=== PATIENT | male | born 1940 | race Caucasian/White ===

== ENCOUNTER 2017-04-24 15:34 | Inpatient (IN) | payer MEDICARE ==
[2017-04-24] MEDS ORDERED: Nitroglycerin TAB 0.4 MG* 0.4 MG TAB SL PRN ×2 (15:41→20:24)
[2017-04-24] MEDS ORDERED: NS 0.9% 1000 ML* 1,000 ML IV ONE (15:41)
[2017-04-24] MEDS ORDERED: Nitroglycerin TAB 0.4 MG* 0.4 MG TAB ONE (15:43)
[2017-04-24] MEDS ORDERED: Metoprolol Tartrate TAB* 25 MG PO ONE (15:46)
[2017-04-24 15:49] LABS: Hematocrit 44 % (42-52); Hemoglobin 15.4 g/dl (14.0-18.0); Mean Corpuscular HGB Conc 35 g/dl (31-36); Mean Corpuscular Hemoglobin 31 pg (27-31); Mean Corpuscular Volume 90 fL (80-94); Mean Platelet Volume 10 um3 (7.4-10.4); Platelet Count 210 10^3/ul (150-450); Red Cell Distribution Width 13 % (10.5-15); White Blood Count 9.8 10^3/ul (3.5-10.8)
[2017-04-24] MEDS ORDERED: Ticagrelor* 90 MG TAB PO ONE ×2 (16:01→16:02)
[2017-04-24] MEDS ORDERED: Heparin for STEMI(*) 5,000 UNITS/ML 1 ML VIAL IV ONE ×2 (16:01→16:02)
[2017-04-24] MEDS ORDERED: Atorvastatin* 80 MG TAB PO ONE (16:02)
[2017-04-24 16:07] LABS: EGFR Non-African American 94.5 (>60)
[2017-04-24] MEDS ORDERED: Ondansetron INJ* 2 MG/ML VIAL ONE (16:07)
[2017-04-24] MEDS ORDERED: Ondansetron INJ* 2 MG/ML VIAL IV ONE (16:07)
[2017-04-24] MEDS ORDERED: Metoprolol Tartrate IV* 1 MG/ML 5 ML VIAL IV ONE (16:10)
[2017-04-24] MEDS ORDERED: Metoprolol Tartrate IV* 1 MG/ML 5 ML VIAL ONE (16:12)
[2017-04-24 16:15] LABS: INR 0.89 (0.77-1.02)
--- NOTE | 2017-04-24 16:15 | RAD ---
Indication: Chest pain. ST elevation NE. Comparison: February 22, 2010 Technique: Upright AP 1559 hours Report: No focal pulmonary lesion, compelling alveolar consolidation, pleural effusion, pneumothorax. Negative for cardiomegaly. Unremarkable central pulmonary vasculature. Mildly tortuous descending thoracic aorta increased over the prior exam. IMPRESSION: No evidence for acute intrathoracic disease.
[2017-04-24] MEDS ORDERED: Aspirin TAB* 325 MG PO ONE (16:17)
[2017-04-24] MEDS ORDERED: Aspirin Low Dose CHEW TAB* 81 MG ONE (16:18)
[2017-04-24 16:19] LABS: ABS Basophils 0.1 10^3/ul (0-0.2); ABS Eosinophils 0.2 10^3/ul (0-0.6); ABS Lymphocytes 2.6 10^3/ul (1.0-4.8); ABS Nucleated RBC 0 10^3/ul; Lymphocyte % 26.4 % (25-47); Nucleated Red Blood Cells % 0.1
[2017-04-24] MEDS ORDERED: Aspirin Low Dose CHEW TAB* 81 MG PO ONE (16:20)
[2017-04-24] MEDS ORDERED: nitroGLYCERIN DRIP* 25,000 MCG/250 ML BTL IV ONE (16:23)
[2017-04-24] MEDS ORDERED: nitroGLYCERIN DRIP* 25,000 MCG/250 ML BTL ONE ×2 (16:28→16:46)
[2017-04-24] MEDS ORDERED: fentaNYL* 50 MCG/ML 2 ML VIAL (100 MCG VIAL) IV SLOW PU ONE (16:38)
[2017-04-24] MEDS ORDERED: fentaNYL* 50 MCG/ML 2 ML VIAL (100 MCG VIAL) ONE ×3 (16:44→19:19)
[2017-04-24] MEDS ORDERED: VERAPAMIL 2.5 MG/ML 4 ML VIAL ONE (16:46)
[2017-04-24] MEDS ORDERED: Heparin(*) 1000 UNIT/ML 10 ML VIAL CATH LAB IV ONE ×2 (16:46→19:17)
[2017-04-24] MEDS ORDERED: Lidocaine 1% INJ* 10 MG/ML 30 ML SDV ONE (16:46)
[2017-04-24] MEDS ORDERED: Heparin 2 UNITS/ML IVPREMIX* 3,000 ML IV ONE (16:46)
[2017-04-24] MEDS ORDERED: Midazolam* 1 MG/ML 10 ML VIAL (10 MG) ONE (16:47)
[2017-04-24 17:38] LABS: Urine Appearance Clear; Urine Blood 1+ (Negative); Urine Color Yellow; Urine Ketones Negative (Negative); Urine Protein Negative (Negative); Urine Specific Gravity 1.012 (1.010-1.030); Urine Urobilinogen Negative (Negative)
--- NOTE | 2017-04-24 18:20 | CONSULT ---
Subjective Date of Service: 04/24/17 Interval History: Date of admission and consult 04/24/2017 Location: ER Primary Care Physician: Escobar Dumont MD Ichthyology Teacher: Dr. Coon CC: Chest pain Reason for consult: ACS HPI: Mr. Calabrese is a 76 year old man with a history of CAD s/p PCI, dyslipidemia unable to tolerate statins and has declined a PCSK9 inhibitor. He had PCI in 2008 following angina and an abnormal stress test. His only cardiac medication is aspirin. He has been doing well recently until this afternoon was carrying briefcase into a meeting and developed substernal non-radiating chest discomfort at 8/10 at worst. EKG showed nondiagnostic < 1 mm AILYN aVL and inferior ST depression. A STEMI alert was called. EKG did not meet STEMI criteria. He was given aspirin, brillinta 180 mg, IV heparin bolus, SL and IV nitroglycerine and IV lopressor 5 mg. He remained with 3/10 angina so IV 25 mcg fentanyl. Pmhx: CAD s/p PCI Dyslipidemia Allergies: Zocor 12/10/11 allergy list reviewed on 11/11/2016 FH: Non contributory SH: Marital: .Lives With: .Occupation: Developer Personal Habits: Smoking: Patient has never smoked.Alcohol: Denies alcohol use.Drug Use: Denies Drug Use.Daily Caffeine: 2-3 cups of Tea a week. Medications Active Medications: Nitroglycerin/Dextrose (Nitroglycerin Drip*) 25,000 mcg in 250 mls @ 6 mls/hr IV ED ONCE ONE PRN Reason: 10 MCG/MIN Stop: 04/26/17 10:02 Last Admin: 04/24/17 16:39 Dose: 6 mls/hr Nitroglycerin (Nitroglycerin Tab 0.4 Mg*) 0.4 mg SL Q5M PRN PRN Reason: ANGINA Last Admin: 04/24/17 16:00 Dose: 0.4 mg Home Medications: Aspirin EC Low Dose* [Ecotrin EC Low Dose 81 MG*] 81 mg PO DAILY 04/24/17 [ History Confirmed 04/24/17] Review of Systems - Measurements Intake and Output: Intake and Output Last 24 Hours 04/22/17 04/23/17 04/24/17 04/25/17 06:59 06:59 06:59 06:59 Intake Total 1000 Balance 1000 Weight 180 lb Intake: IV Fluids 1000 - Review of Systems Constitutional Symptoms: Negative: Weight Gain, Weight Loss, Weakness, Fatigue, Fever, Night Sweats, Unexplained Falls Dermatology: Negative: Rash, Skin Lesions HEENT: Negative: Change in Hearing, Vertigo, Tinnitus Eyes: Negative: Change in Vision, Double Vision, Eye Pain Thyroid: Negative: Goiter, Thyroid Nodule, Cold Intolerance, Heat Intolerance, Sweatiness, Tremor, Frequent Defecation, Constipation, Palpitations, Primary Hypothyroidism, Primary Hyperthyroidism, Weight Loss, Weight Gain, Change in Skin/Hair Pulmonary: Negative: Cough, Sputum, Hemoptysis, Wheezing, Respiratory Distress, Shortness of Breath, COPD, Asthma Cardiology: Positive: Chest Pain Negative: Shortness of Breath, Palpitations, Swelling of Ankles, Peripheral Vascular Dis, Edema, Faintness, Syncope, Claudication, Paroxysmal Nocturnal Dyspnea, Orthopnea Gastroenterology: Negative: Abdominal Pain, Nausea, Vomiting, Anorexia, Indigestion, Difficulty Swallowing, Heartburn, Constipation, Diarrhea, Blood in Stools, Change in Bowel Habits, Haematemesis, Melena Genital - Urinary: Negative: Dysuria, Hematuria, Polyuria, Nocturia Musculoskeletal: Negative: Joint Pain, Joint Stiffness, Osteoporosis, Low Back Pain Endocrinology: Positive: Obesity Negative: Thyroid Problems, Adrenal Problems, Diabetes, Hyperglycemia, Hypoglycemia, Polydipsia, Polyuria Hematologic/Lymphatic: Positive: Use of Antiplatelet Drugs Negative: Anemia, Easy Brusing, Hx Leukemia, Hx Lymphoma, Use of Anticoagulant Neurology: Negative: Headaches, Change in Vision, Diplopia, Dizziness, Change in Balancing, Change in Coordination, Change in Memory, Hx of Stroke\TIA, Hx Seizures Psychiatry: Negative: Anxiety, Weight Change, Guilt Feelings, Tearfulness, Unusual Fatigue Allergic/Immunologic: Negative: Hx Anaphylaxis, Hx Angioedema, Hx HIV, Immunocompromise Review of Systems Statement: All other review of systems negative, unless stated above. Objective Vital Signs: Temp Pulse Resp BP Pulse Ox 98.6 F 70 20 142/81 100 04/24/17 16:55 04/24/17 16:55 04/24/17 16:55 04/24/17 16:55 04/24/17 16:55 Appearance: nad, pleasant Ears/Nose/Mouth/Throat: Clear Oropharnyx, Mucous Membranes Moist Neck: NL Appearance and Movements; NL JVP, Trachea Midline Respiratory: Symmetrical Chest Expansion and Respiratory Effort, Clear to Auscultation Cardiovascular: NL Sounds; No Murmurs; No JVD, RRR, No Edema Abdominal: NL Sounds; No Tenderness; No Distention Extremities: No Edema Skin: No Rash or Ulcers Neurological: Alert and Oriented x 3 Laboratory Results: 04/24/17 15:40 04/24/17 15:40 INR (Anticoag Therapy) 0.89 (0.77-1.02) 04/24/17 15:40 APTT 29.5 seconds (26.0-36.3) 04/24/17 15:40 Total Bilirubin 0.50 mg/dL (0.2-1.0) 04/24/17 15:40 AST 13 U/L (13-39) 04/24/17 15:40 ALT 22 U/L (7-52) 04/24/17 15:40 Alkaline Phosphatase 62 U/L (34-104) 04/24/17 15:40 CK-MB (CK-2) 1.2 ng/mL (0.6-6.3) 04/24/17 15:40 B-Natriuretic Peptide 30 pg/mL (-100) 04/24/17 15:40 Total Protein 7.1 g/dL (6.4-8.9) 04/24/17 15:40 Albumin 4.2 g/dL (3.2-5.2) 04/24/17 15:40 Globulin 2.9 g/dL (2-4) 04/24/17 15:40 Albumin/Globulin Ratio 1.4 (1-3) 04/24/17 15:40 TSH 1.97 mcIU/mL (0.34-5.60) 04/24/17 15:40 04/24/17 15:40 Troponin I 0.01 07/2016: tchol 265, tri 116,hdl 65, ldl 177 Diagnostic Imaging: PMH: Medical Problems: Exercise Tolerance Test - (05/2009) stress echo: 10 minutes and 30 sec, 12.9 METS, normal stress echo. Exercise Tolerance Test - (04/2011) stress nuclear: complete 9 minutes and 32 seconds of a Paramjit, 60% EF with stress and 66% at rest. Coronary Artery Disease (CAD) - (08/29/2008) CP, [facility], abnl stress echo; Cath, [place], [place]: 90% mid LAD, 99% d1 (small), moderate ramus 99%. Taxus 2.5 stent to Ramus, LAD 2.25 ATom JOSELITO. Doppler flow wire to distal LAD, no sig compromise. nl LVEF 60% 01/02/09: recurrent cp. 01/03 abnl stress test, anterior ischemia, transferred to Dr. Preston , [facility], D1 99% old. 2.25 JOSELITO stent placed, large vessel once dilated, LAD 80%+ 3.0 mm expanded to 3.5 Mid LAD dilated. JOSELITO. angioplasty and stenting of the 1st diagonal and of the LAD lesion. D1: 2.25 x 16 mm Taxus Atom JOSELITO. LAD: 3 x 16mm Taxus Casey JOSELITO just after D1. Proximal LAD lesion was 60% and a 3 x 12 mm Taxus Casey stent overlapping with the previous one which was deployed and dilated to 3.5 Cardiac Testing: Exercise Tolerance Test - (10/2012) stress nuclear. no evidence of ischemia or infarct. He had a normal EF at a good level of exertion which included exercise for 10 minutes and 23 seconds to 12.8 METS. He had a hypertensive blood pressure response and normal resting blood pressure. Exercise Tolerance Test - (07/2016) complete 9 minutes of a Paramjit to 10.1 METS and had no evidence of ischemia on nuclear test. Assessment/Plan Mr. Calabrese is a 76 year old man with a history of CAD s/p PCI, dyslipidemia who presents with an acute type 1 plaque disruption MD/NSTEMI. No ventricular arrhythmias, CHF, hemodynamic instabilities. Patient has persistent angina despite medical treatment so decision was made for urgent coronary angiogram with intent for revascularization. Risks, benefits and alternatives discussed and patient wished to proceed. Further recommendations pending clinical course. Could try livalo and/or PCSK9 inhibitor in the future for LDL lowering.
[2017-04-24] MEDS ORDERED: Iohexol 350 (CONTRAST) 200 ML MDV IV ONE (18:27)
[2017-04-24] MEDS ORDERED: Acetaminophen TAB* 325 MG PO PRN (20:24)
[2017-04-24] MEDS ORDERED: NS 0.9% 1000 ML* 1,000 ML IV SCH (20:30)
[2017-04-24] MEDS: Metoprolol Tartrate TAB* 25 MG PO SCH (21:39)
[2017-04-24] MEDS: Ticagrelor* 90 MG TAB PO SCH (21:39)
[2017-04-25] MEDS: Metoprolol Tartrate TAB* 25 MG PO SCH ×2 (02:59→07:56)
[2017-04-25 03:20] LABS: ABS Basophils 0.1 10^3/ul (0-0.2); ABS Eosinophils 0.1 10^3/ul (0-0.6); ABS Lymphocytes 1.3 10^3/ul (1.0-4.8); ABS Monocytes 1.1 10^3/ul (0-0.8); ABS Neutrophils 6.8 10^3/ul (1.5-7.7); ABS Nucleated RBC 0 10^3/ul; Eosinophil % 1.5 % (0-6); Hematocrit 42 % (42-52); Hemoglobin 14.4 g/dl (14.0-18.0); Lymphocyte % 14.1 % (25-47); Mean Corpuscular HGB Conc 35 g/dl (31-36); Mean Corpuscular Hemoglobin 31 pg (27-31); Mean Corpuscular Volume 89 fL (80-94); Mean Platelet Volume 10 um3 (7.4-10.4); Nucleated Red Blood Cells % 0.1; Platelet Count 185 10^3/ul (150-450); Red Blood Count 4.67 10^6/ul (4.0-5.4); Red Cell Distribution Width 13 % (10.5-15); White Blood Count 9.4 10^3/ul (3.5-10.8)
[2017-04-25 03:30] LABS: EGFR Non-African American 82.5 (>60)
[2017-04-25] MEDS: Aspirin Low Dose CHEW TAB* 81 MG PO SCH (07:56)
[2017-04-25] MEDS: Ticagrelor* 90 MG TAB PO SCH ×2 (07:56→21:36)
[2017-04-25] MEDS: Metoprolol Tartrate TAB* 50 mg PO SCH ×2 (13:46→21:36)
--- NOTE | 2017-04-26 01:09 | CATH ---
CC: Dr. Dumont; Dr. Coon STENT REPORT: DATE OF PROCEDURE: 04/24/17 PRIMARY: Dr. Dumont. ASSEMBLER FOR PULLER OVER HAND: Dr. Coon. PROCEDURES: 1. Right radial artery access, bilateral selective coronary cineangiography, left heart catheterizat ion, stent placement, RCA, 4.0 x 38, 4.0 x 32 drug-eluting stents. 2. Stent placement, diagonal branch 2.5 x 16 drug-eluting stent. HISTORY: A 76-year-old male with previous multivessel, multi-lesion stenting in 2008 with placement of a 2.25 mm stent in the mild LAD, with 2.5 drug-eluting stent in the ramus, a 2.25 x 16 stent in a diagonal branch, a 3 x 16 stent in the mid LAD and a 3 x 12 stent in the proximal LAD per report. On e of these procedures was via the radial, the other via the femoral. Both were performed in [place] . He now presents with a non-ST elevation infarct. PROCEDURE ACCESS: Right radial artery. It was evaluated with ultrasound, the radial artery was smal l, with a suggestion of a focal stenosis even though it was not occluded by reverse Barbeau. I there fore elected not to utilize the radial artery for access. Right common femoral artery, sheath 6F. MEDICATIONS: 1. Subcu lidocaine. 2. IV Versed. 3. IV fentanyl. 4. Heparin 4000 units, 3000 units, 3000 units, 2000 units. DIAGNOSTIC CATHETER: 6FL4, 6FR4. GUIDING CATHETER: RCA 6FR4, wire 14 BMW used to deploy a 4 x 38 Synergy drug- eluting stents in the [id number] RCA, and a 4 x 32 Synergy drug-eluting stent more proximally, ending just short of the ostium. It was then post dilated with a 4 x 30 NC balloon in the entire stented area, 18 atmospheres for 20 seconds, 18 for 15 seconds, 20 atmospheres for 15 seconds. A 6F LBU 3.5 guide followed by a 6F VL 3.5 guide for better support was used to access the diagonal b ranch where occlusion was crossed with support of a 2.5 mm balloon. It was quite difficult to select the diagonal branch, which was occluded because of the number of the adjacent side branches. Once t he occlusion was crossed, it was predilated with the 2.5 mm balloon, after which it was stented with 2.5 x 16 Synergy drug-eluting stents after which it was post dilated with a 2.5 x 15 NC balloon 18 at mospheres 30 seconds. HEMODYNAMICS: Initial BP 131/78, LV 123/8-17, no aortic valve gradient on pull back. ANGIOGRAPHY: Right Common Femoral: Sheath entry is in segment 2, there is no stenosis. Left Main: The left main is normal without stenosis. LAD: The LAD is moderate, extends to the apex, it has a number of proximal branches, which are very difficult to separate out because of overlap. There is a moderate first diagonal, there is then an a djacent second branch or diagonal, which is occluded shortly after its origin, has distal JANETH-1 to 2 flow, has a proximal stent. The mid LAD has a patent stent after which there is 40% stenosis after which there is another stent, which is widely patent. Circumflex: The circumflex is small, not dominant. Based on the origin, the first diagonal is proba ridge the vessel that was previously described as a ramus. The circumflex has no stenosis, the first d iagonal is patent. RCA: The RCA had dampening with engagement, has a tubular proximal 50% to 60% stenosis, the vessel t hen reconstitutes, has a 50% stenosis, then has a very discrete 90% stenosis at the acute margin. Th e PDA is large followed by several posterolateral branches, distal RCA distribution is large. After drug-eluting stent placement from the acute margin back to short of the ostium and high-pressur e post dilatation, the RCA is widely patent, there is no residual stenosis, there is no dissection, f low is JANETH-3. The distal RPL has diffuse less than 50% stenosis. After revascularization of the diagonal branch, it has normal antegrade flow, no dissection, no throm bus. CONCLUSION: 1. Two-vessel disease with culprit diagonal occlusion, at a site of previous stent placement. Succe ssful revascularization with a drug-eluting stent. 2. Successful drug-eluting stent placement RCA from acute margin to short of ostium with excellent a ngiographic results. 3. Normal left-sided hemodynamics. 4. Right radial artery not suitable for radial access due to probable focal stenosis from prior proc edure. 5. Successful right common femoral artery access followed by Angio-Seal closure. [id number]/[facility] #: [id number]
[2017-04-26] MEDS: Metoprolol Tartrate TAB* 50 mg PO SCH ×3 (05:55→21:00)
[2017-04-26] MEDS: Ticagrelor* 90 MG TAB PO SCH ×2 (09:44→21:06)
[2017-04-26] MEDS: Aspirin Low Dose CHEW TAB* 81 MG PO SCH (09:45)
--- NOTE | 2017-04-26 10:04 | ECHO ---
Patient: STACEY BROWN [facility] Rec#: [id number] : 1940 Date: 04/26/2017 Age: 76y Height: 180.34 cm / 71.0 in Weight: 81.65 kg / 180.0 lbs Sex: M BSA: 2.02 Room#: ICU-4 Admit Date#: 04/24/2017 Type: Inpatient Referring: Homar Sheldon MD Reading: Tony Rossi DO Vice President Of Customer Service: Ananya Obregon PHANI CC: Escobar Dumont MD Transthoracic Echocardiogram Indication: STEMI BP: 135/89 HR: 64 Rhythm: NSR Findings History: CAD with PCI in the past,HLD,a/p PCI 04/24/17. Technical Comments: The study quality is good. Completed at 0909. Left Ventricle: The left ventricular chamber size is normal.Mild basal septal hypertrophy Global left ventricular wall motion and contractility are within normal limits. There is normal left ventricular systolic function. The estimated ejection fraction is 55-60%. Abnormal left ventricular diastolic filling is observed, consistent with impaired relaxation. Left Atrium: The left atrial chamber size is normal. Right Ventricle: The right ventricular chamber size and systolic function are within normal limits. Right Atrium: The right atrial cavity size is normal. Aortic Valve: The aortic valve is trileaflet. The aortic valve leaflets are mildly thickened. There is no evidence of aortic regurgitation. There is no evidence of aortic stenosis. Mitral Valve: The mitral valve leaflets are mildly thickened. Mild mitral leaflet calcification is visualized. There is a trace of mitral regurgitation. There is no evidence of mitral stenosis. Tricuspid Valve: The tricuspid valve leaflets are normal. There is trace to mild tricuspid regurgitation., more consistent with mild. No pulmonary hypertension is noted. There is no tricuspid stenosis. Pulmonic Valve: The pulmonic valve structure is not well visualized. The pulmonic valve appears normal. There is a trace pulmonic regurgitation. There is no pulmonic stenosis. Pericardium: There is no significant pericardial effusion. Aorta: There is no dilatation of the ascending aorta. The aortic arch is not well visualized. There is mild dilatation of the aortic root. Pulmonary Artery: The main pulmonary artery is not well visualized. Venous: The inferior vena cava appears normal in size. There is a greater than 50% respiratory change in the inferior vena cava dimension. Conclusions The left ventricular chamber size is normal. Mild basal septal hypertrophy Global left ventricular wall motion and contractility are within normal limits. There is normal left ventricular systolic function. The estimated ejection fraction is normal at 55-60%. The left atrial chamber size is normal. The right ventricular chamber size and systolic function are within normal limits. No significant valvular abnormalities noted. There is mild dilatation of the aortic root. No recent echocardiograms available for comparison at time of interpretation. Measurements Name Value Normal Range RVIDd (AP) 2D 2.1 cm (0.9 - 2.6) RVDdMajor (2D) 3.3 cm (2.2 - 4.4) RAd ISD 4CH 4.6 cm (3.4 - 4.9) RA (A4C)W 2.9 cm (2.9 - 4.6) IVSd (2D) 0.9 cm (0.6 - 1) LVPWd (2D) 0.8 cm (0.6 - 1) LVIDd (2D) 4.3 cm (3.6 - 5.4) LVIDs (2D) 3.1 cm - LV FS (2D) 28 % (25 - 45) Aortic Annulus 2.2 cm (1.4 - 2.6) Ao root diameter (2D) 3.6 cm (2.1 - 3.5) Ascending Ao 3 cm (2.1 - 3.4) LA dimension (AP) 2D 3 cm (2.3 - 3.8) LAd ISD 4CH 4 cm (2.9 - 5.3) LA ISD 4CH W 3.3 cm (2.5 - 4.5) Name Value Normal Range LA ESV SP 4CH (A/L) 17 ml - LA ESV SP 2CH (A/L) 24 ml - LA ESV BP (A/L) 22 ml - LA ESV BP (A/L) index 10.82 ml/m2 - LA ESV SP 4CH (MOD) 17 ml - LA ESV SP 2CH (MOD) 22 ml - Name Value Normal Range MV E-wave Vmax 0.5 m/sec - MV deceleration time 404 msec - MV A-wave Vmax 0.8 m/sec - MV E:A ratio 0.64 ratio - LV septal e' Vmax 0.06 m/sec - LV lateral e' Vmax 0.07 m/sec - LV E:e' septal ratio 8.33 ratio - LV E:e' lateral ratio 7.14 ratio - Name Value Normal Range AV Vmax 0.9 m/sec - AV VTI 21 cm - AV peak gradient 3.32 mmHg - AV mean gradient 2.15 mmHg - LVOT Vmax 0.6 m/sec - LVOT VTI 14.3 cm - LVOT peak gradient 1.59 mmHg - LVOT mean gradient 0.68 mmHg - Name Value Normal Range TR Vmax 2 m/sec - TR peak gradient 15 mmHg - RAP 3 mmHg - RVSP 18 mmHg - IVC diameter 1.5 cm - Name Value Normal Range PV Vmax 0.6 m/sec - PV peak gradient 1.51 mmHg -
[2017-04-27] MEDS: Aspirin Low Dose CHEW TAB* 81 MG PO SCH (08:37)
[2017-04-27] MEDS: Ticagrelor* 90 MG TAB PO SCH (08:37)
[2017-04-27] MEDS ORDERED: Pitavastatin (NF) 1 MG TAB PO SCH (09:00)
[2017-04-27] MEDS ORDERED: Metoprolol Succinate XL TAB* 50 MG PO SCH (09:00)
[2017-04-27 11:24] VITALS: BP 102/61
--- NOTE | 2017-04-28 01:29 | DS ---
CC: Dr. Escobar Dumont; Dr. Homar Sheldon; Dr. Luis Coon, [facility] * DISCHARGE SUMMARY: DATE OF ADMISSION: 04/24/17 DATE OF DISCHARGE: 04/27/17 FINAL DIAGNOSES: 1. Non-ST elevation myocardial infarction. 2. Stenotic coronary artery disease. 3. Hyperlipidemia. FINAL DISCHARGE MEDICATIONS: Include: 1. Metoprolol succinate 50 mg a day. 2. Livalo 1 mg a day. 3. Ticagrelor 90 mg twice a day. 4. Aspirin 81 mg a day. 5. Sublingual nitroglycerin as needed. HOSPITAL COURSE: The patient is a pleasant 76-year-old gentleman with known history of coronary artery disease, who presented to [facility] in the throes of an acute coronary syndrome. He was seen by Dr. Tony Rossi in consultation and felt did not have definitive criteria for a STEMI, but clearly an acute coronary syndrome with non-STEMI. He was given medication and rushed to the cardiovascular laboratory with intervention performed by Dr. Homar Sheldon, to a critically stenosed 90% obstruction in the proximal to mid right coronary artery with stenting from the mid section back to to the proximal portion, as well as with intervention into recannulate a totally occluded diagonal branch with stenting. Please refer to Dr. Sheldon' report for complete details. During the course of the hospitalization, his MB peaked immediately at 85 with a total CPK of 209 and a troponin of 9.68. During the course of the hospitalization, he had a transthoracic echocardiogram that revealed normal left ventricular systolic function with no focal wall motion abnormality noted. There was no significant valvular disease as well. His EKG over time and on the day of discharge revealed sinus rhythm with T-wave inversion in aVL and poor R-wave progression in the early precordial leads. PHYSICAL EXAMINATION ON THE DAY OF DISCHARGE: Vital Signs: Blood pressure 109/ 57 with a pulse of 63, respirations of 16, O2 saturation 98% on room air. Neck was supple. There was no increased JVP. Carotid with good upstroke and volume without bruits. Conjunctivae were pink. Sclerae clear. Lungs revealed no accessory muscle usage. There was good excursion. There were no active rales, rhonchi, or wheezes. Heart revealed no visible heaves, no palpable heaves or thrills. Normal S1, S2. No significant S3, S4, or gallop. No significant systolic or diastolic murmurs were appreciated. Abdomen was soft, nontender without organomegaly. Extremities were without clubbing, cyanosis, or jairo pitting edema. The right groin area was well healed with no hematoma, mild bruising, good pulse, and no bruit. The right radial artery site was well healed with mild ecchymosis. Neuro: The patient was alert, oriented with normal mentation. Musculoskeletal: The patient with normal gait. Psychiatric : The patient with normal affect. FOLLOWUP: The patient will be followed up with Dr. Sheldon in approximately 4 days from now for wound check and then followup with his primary rn advanced, Dr. Luis Coon following that. [id number]/[facility] #: [id number] [facility] HOSPITALMark
== END 2017-04-27 13:28 | disposition home or self-care (01) | DRG 247 ==
LOC: ED 15:34 → CHICATH 17:12 → ICU 20:24 → MEDTELE 04-26 12:00
PROVIDERS: ADMIT Internal Medicine Cardiovascular Disease; ATTEND Internal Medicine Cardiovascular Disease
PROC: B2111ZZ Fluoroscopy of Multiple Coronary Arteries using Low Osmolar Contrast (ICD-10-PCS; 2017-04-24)
PROC: 4A023N7 Measurement of Cardiac Sampling and Pressure, Left Heart, Percutaneous Approach (ICD-10-PCS; 2017-04-24)
PROC: 027136Z Dilation of Coronary Artery, Two Arteries with Three Drug-eluting Intraluminal Devices, Percutaneous Approach (ICD-10-PCS; principal; 2017-04-24 14:30)
DX: I21.4 Non-ST elevation (NSTEMI) myocardial infarction (principal); I47.2 Ventricular tachycardia; E78.5 Hyperlipidemia, unspecified; I25.10 Atherosclerotic heart disease of native coronary artery without angina pectoris; Z79.82 Long term (current) use of aspirin; Z79.01 Long term (current) use of anticoagulants; Z95.5 Presence of coronary angioplasty implant and graft; Z88.8 Allergy status to other drugs, medicaments and biological substances
CPT/HCPCS: 36415; 71045; 80048; 80053; 80061; 81003; 81015; 82550; 82553; 83735; 83880; 84443; 84484; 85025; 85610; 85730; 87641; 93005; 93306; 93458; 99156; 99157; A9270-GY; C1725; C1760; C1769; C1876; C1887; C9600-RC; C9601-LD; J1644; J2250; J2405; J3010; J3490

== ENCOUNTER 2017-09-15 11:11 | Emergency (ER) | payer MEDICARE ==
[2017-09-15] MEDS ORDERED: NS 0.9% 1000 ML* 1,000 ML IV ONE (12:11)
--- NOTE | 2017-09-15 12:41 | RAD ---
HISTORY: chest pain,dizziness COMPARISONS: April 24, 2012 VIEWS: 1: frontal portable view of the chest at 12:26 PM FINDINGS: LINES AND TUBES: None. CARDIOMEDIASTINAL SILHOUETTE: The cardiomediastinal silhouette is normal for portable technique. PLEURA: The costophrenic angles are sharp. No pleural abnormalities are noted. LUNG PARENCHYMA: The lungs are clear. ABDOMEN: The upper abdomen is clear. There is no subphrenic gas. BONES AND SOFT TISSUES: Degenerative changes are noted. IMPRESSION: NO ACTIVE CARDIOPULMONARY DISEASE.
[2017-09-15 12:44] LABS: ABS Basophils 0.1 10^3/ul (0-0.2); ABS Eosinophils 0.1 10^3/ul (0-0.6); ABS Lymphocytes 1.2 10^3/ul (1.0-4.8); ABS Monocytes 0.8 10^3/ul (0-0.8); ABS Neutrophils 5.9 10^3/ul (1.5-7.7); ABS Nucleated RBC 0 10^3/ul; Eosinophil % 1.5 % (0-6); Hematocrit 40 % (42-52); Lymphocyte % 14.4 % (25-47); Mean Corpuscular HGB Conc 35 g/dl (31-36); Mean Corpuscular Hemoglobin 32 pg (27-31); Mean Corpuscular Volume 90 fL (80-94); Mean Platelet Volume 9.8 um3 (7.4-10.4); Nucleated Red Blood Cells % 0; Platelet Count 161 10^3/ul (150-450); Red Blood Count 4.38 10^6/ul (4.00-5.40); Red Cell Distribution Width 13 % (10.5-15)
[2017-09-15 12:58] LABS: INR 0.91 (0.77-1.02)
[2017-09-15 13:04] LABS: EGFR Non-African American 106.7 (>60)
[2017-09-15] MEDS ORDERED: Iohexol 350* (CONTRAST) 500 ML MDV IV ONE (13:13)
--- NOTE | 2017-09-15 14:51 | RAD ---
HISTORY: chest pain,positive ddimer COMPARISONS: None TECHNIQUE: Multiple contiguous axial CT scans of the chest were obtained after the administration of nonionic intravenous contrast, timed to the pulmonary arterial phase of contrast enhancement.. Coronal and sagittal multiplanar reformations are also submitted for review. FINDINGS: NECK AND THYROID: The lower neck and thyroid are unremarkable. CHEST WALL: There is no lower cervical, axillary, or supraclavicular lymphadenopathy by size criteria. HEART AND PERICARDIUM: The heart is unremarkable. AORTA AND PULMONARY VASCULATURE: There is no pulmonary arterial filling defect to suggest pulmonary embolism. There is no linear filling defect within the aorta to suggest aortic dissection. MEDIASTINUM: There is no mediastinal lymphadenopathy by size criteria. CHARAN: There is no hilar lymphadenopathy by size criteria. AIRWAY AND ESOPHAGUS: The airway is unremarkable, without endobronchial filling defect. The esophagus is grossly normal. LUNG PARENCHYMA: The lungs are clear. PLEURA: No pleural abnormalities are noted. UPPER ABDOMEN: The upper abdomen is unremarkable. BONES AND SOFT TISSUES: Degenerative changes are noted of the spine OTHER: None. IMPRESSION: NO PULMONARY ARTERIAL FILLING DEFECT TO SUGGEST PULMONARY EMBOLISM.
[2017-09-15 15:08] VITALS: BP 119/69
--- NOTE | 2017-09-15 16:53 | ED ---
Charles Hernández Simon, scribed for Barak Marcum MD on 09/15/17 at 1216 . HPI Chest Pain - HPI Summary HPI Summary: This patient is a 76 year old M presenting to [facility] with a chief complaint of CP since 0130 or 0200 this AM at 2-3/10 intensity, which lasted for 1 hour and is now resolved. Pt denies the CP radiated. Pt endorsed taking 2 NTG pills last night which slowly improved sx. Pt endorses off-balance dizziness due to hypotension; drinking 1 L water helped blood pressure go up, improved dizziness sx. Pt endorses extra exertion last week sailing in [place] and driving for 12 hours back to [place]; he endorses fatigue since the drive. - History of Current Complaint Chief Complaint: EDChestPainROMI Time Seen by Provider: 09/15/17 11:59 Hx Obtained From: Patient Onset/Duration: Started Hours Ago, Resolved Timing: Lasting Hours Initial Severity: Mild Current Severity: None Pain Intensity: 2 Pain Scale Used: 0-10 Numeric Chest Pain Location: Mid Sternal Chest Pain Radiates: No Character: Dull/Aching Aggravating Factor(s): Exertion Alleviating Factor(s): Rest, NTG 123, Spontaneous Resolution Associated Signs and Symptoms: Positive: Chest Pain, Recent Stress - sailing, [address], Dizziness. Negative: Fever, Diaphoresis, Nausea, Back Pain, Abdominal Pain - Additional Pertinent History Primary Care Physician: MARIYA - Allergy/Home Medications Allergies/Adverse Reactions: Allergies Allergy/AdvReac Type Severity Reaction Status Date / Time simvastatin [From Zocor] Allergy Unknown Verified 09/15/17 11:13 Reaction Details Home Medications: Home Medications Bicalutamide (NF) [Casodex (NF)] 50 mg PO DAILY 09/15/17 [History Confirmed ] Pitavastatin (NF) [Livalo (NF)] 2 mg PO DAILY 09/15/17 [History Confirmed ] PMH/Surg Hx/FS Hx/Imm Hx Endocrine/Hematology History: Denies: Hx Diabetes, Hx Thyroid Disease Cardiovascular History: Reports: Hx Angina, Hx Coronary Artery Disease, Hx Hypercholesterolemia, Hx Hypotension, Hx Myocardial Infarction - 04/16 Denies: Hx Hypertension, Hx Peripheral Vascular Disease Respiratory History: Denies: Hx Asthma, Hx Chronic Obstructive Pulmonary Disease (COPD) History: Reports: Other Problems/Disorders - PT STATES DIFFICULTY STARTING STREAM, FREQUENT URINATION Denies: Hx Renal Disease Musculoskeletal History: Denies: Hx Osteoporosis Sensory History: Denies: Hx Contacts or Glasses, Hx Hearing Aid Opthamlomology History: Denies: Hx Contacts or Glasses Neurological History: Denies: Hx Headaches, Hx Seizures, Hx Transient Ischemic Attacks (TIA) Psychiatric History: Denies: Hx Anxiety - Immunization History Immunizations Up to Date: Yes Infectious Disease History: No Infectious Disease History: Denies: Traveled Outside the [place] in Last 30 Days - Family History Known Family History: Positive: Cardiac Disease - father valve replacements, Other - cancer both mother and father. - Social History Alcohol Use: None Substance Use Type: Reports: None Smoking Status (MU): Never Smoked Tobacco Review of Systems Positive: Fatigue. Negative: Fever, Skin Diaphoresis Positive: Chest Pain - resolved, no radiation of pain Negative: Shortness Of Breath Negative: Nausea Neurological: Other - dizziness, off-balance All Other Systems Reviewed And Are Negative: Yes Physical Exam - Summary Physical Exam Summary: General: well-appearing, no pain distress Skin: warm, color reflects adequate perfusion, dry Head: normal Eyes: EOMI, RAFFY ENT: normal Neck: supple, nontender Respiratory: CTA, breath sounds present Cardiovascular: RRR Abdomen: soft, nontender Bowel: present Musculoskeletal: normal, strength/ROM intact Neurological: sensory/motor intact, A&O x3 Psychological: affect/mood appropriate Triage Information Reviewed: Yes Vital Signs On Initial Exam: Initial Vitals Temp Pulse Resp BP Pulse Ox 96.6 F 89 16 123/76 96 09/15/17 11:12 09/15/17 11:12 09/15/17 11:12 09/15/17 11:12 09/15/17 11:12 Vital Signs Reviewed: Yes Diagnostics - Vital Signs Vital Signs Temp Pulse Resp BP Pulse Ox 09/15/17 11:12 96.6 F 89 16 123/76 96 - Laboratory Lab Results: Lab Results 09/15/17 09/15/17 09/15/17 Range/Units 12:30 12:31 12:31 WBC 8.0 (3.5-10.8) 10^3/ul RBC 4.38 (4.00-5.40) 10^6/ul Hgb 14.0 (14.0-18.0) g/dl Hct 40 L (42-52) % MCV 90 (80-94) fL MCH 32 H (27-31) pg MCHC 35 (31-36) g/dl RDW 13 (10.5-15) % Plt Count 161 (150-450) 10^3/ul MPV 9.8 (7.4-10.4) um3 Neut % (Auto) 73.3 (38-83) % Lymph % (Auto) 14.4 L (25-47) % Galax % (Auto) 10.1 H (0-7) % Eos % (Auto) 1.5 (0-6) % Baso % (Auto) 0.7 (0-2) % Absolute Neuts (auto) 5.9 (1.5-7.7) 10^3/ul Absolute Lymphs (auto) 1.2 (1.0-4.8) 10^3/ul Absolute Monos (auto) 0.8 (0-0.8) 10^3/ul Absolute Eos (auto) 0.1 (0-0.6) 10^3/ul Absolute Basos (auto) 0.1 (0-0.2) 10^3/ul Absolute Nucleated RBC 0 10^3/ul Nucleated RBC % 0 INR (Anticoag Therapy) 0.91 (0.77-1.02) APTT 27.9 (26.0-36.3) seconds D-Dimer, Quantitative 249 H (Less Than 230) ng/mL Sodium 132 L (135-145) mmol/L Potassium 4.2 (3.5-5.0) mmol/L Chloride 100 L (101-111) mmol/L Carbon Dioxide 25 (22-32) mmol/L Anion Gap 7 (2-11) mmol/L BUN 16 (6-24) mg/dL Creatinine 0.72 (0.67-1.17) mg/dL Est GFR ( Amer) 137.2 (>60) Est GFR (Non-Af Amer) 106.7 (>60) BUN/Creatinine Ratio 22.2 H (8-20) Glucose 93 (70-100) mg/dL Lactic Acid (0.5-2.0) mmol/L Calcium 9.7 (8.6-10.3) mg/dL Magnesium 2.2 (1.9-2.7) mg/dL Total Bilirubin 0.60 (0.2-1.0) mg/dL AST 14 (13-39) U/L ALT 23 (7-52) U/L Alkaline Phosphatase 56 (34-104) U/L Total Creatine Kinase 50 (10-223) U/L CK-MB (CK-2) 1.8 (0.6-6.3) ng/mL Troponin I 0.00 (<0.04) ng/mL C-Reactive Protein 2.04 (<8.01) mg/L B-Natriuretic Peptide ( - 100) pg/mL Total Protein 6.8 (6.4-8.9) g/dL Albumin 4.1 (3.2-5.2) g/dL Globulin 2.7 (2-4) g/dL Albumin/Globulin Ratio 1.5 (1-3) Lipase 34 (11.0-82.0) U/L TSH 1.75 (0.34-5.60) mcIU/mL 09/15/17 09/15/17 Range/Units 12:31 12:31 WBC (3.5-10.8) 10^3/ul RBC (4.00-5.40) 10^6/ul Hgb (14.0-18.0) g/dl Hct (42-52) % MCV (80-94) fL MCH (27-31) pg MCHC (31-36) g/dl RDW (10.5-15) % Plt Count (150-450) 10^3/ul MPV (7.4-10.4) um3 Neut % (Auto) (38-83) % Lymph % (Auto) (25-47) % Galax % (Auto) (0-7) % Eos % (Auto) (0-6) % Baso % (Auto) (0-2) % Absolute Neuts (auto) (1.5-7.7) 10^3/ul Absolute Lymphs (auto) (1.0-4.8) 10^3/ul Absolute Monos (auto) (0-0.8) 10^3/ul Absolute Eos (auto) (0-0.6) 10^3/ul Absolute Basos (auto) (0-0.2) 10^3/ul Absolute Nucleated RBC 10^3/ul Nucleated RBC % INR (Anticoag Therapy) (0.77-1.02) APTT (26.0-36.3) seconds D-Dimer, Quantitative (Less Than 230) ng/mL Sodium (135-145) mmol/L Potassium (3.5-5.0) mmol/L Chloride (101-111) mmol/L Carbon Dioxide (22-32) mmol/L Anion Gap (2-11) mmol/L BUN (6-24) mg/dL Creatinine (0.67-1.17) mg/dL Est GFR ( Amer) (>60) Est GFR (Non-Af Amer) (>60) BUN/Creatinine Ratio (8-20) Glucose (70-100) mg/dL Lactic Acid 0.7 (0.5-2.0) mmol/L Calcium (8.6-10.3) mg/dL Magnesium (1.9-2.7) mg/dL Total Bilirubin (0.2-1.0) mg/dL AST (13-39) U/L ALT (7-52) U/L Alkaline Phosphatase (34-104) U/L Total Creatine Kinase (10-223) U/L CK-MB (CK-2) (0.6-6.3) ng/mL Troponin I (<0.04) ng/mL C-Reactive Protein (<8.01) mg/L B-Natriuretic Peptide 21 ( - 100) pg/mL Total Protein (6.4-8.9) g/dL Albumin (3.2-5.2) g/dL Globulin (2-4) g/dL Albumin/Globulin Ratio (1-3) Lipase (11.0-82.0) U/L TSH (0.34-5.60) mcIU/mL Result Diagrams: 09/15/17 12:31 09/15/17 12:30 Lab Statement: Any lab studies that have been ordered have been reviewed, and results considered in the medical decision making process. - Radiology chest XR Radiology Interpretation Completed By: Radiologist - No active cardiopulmonary disease. Dr. Arreaga has reviewed this radiology report. - CT CTA chest/thorax CT Interpretation: No Acute Changes CT Interpretation Completed By: Radiologist - NO PULMONARY ARTERIAL FILLING DEFECT TO SUGGEST PULMONARY EMBOLISM. Dr. Arreaga has reviewed this report. - EKG 1117 Cardiac Rate: NL - 77 EKG Rhythm: Sinus Rhythm ST Segment: Normal Ectopy: None Re-Evaluation - Re-Evaluation First Eval Re-Evaluation Time: 13:03 Comment: Discussed negative chest XR results with pt. Second Eval Re-Evaluation Time: 15:18 Change: Improved Comment: Pt feels better, wants discharge. Chest Pain Course/Dx - Course Course Of Treatment: Medications reviewed. Allergies noted. NO CHEST PAIN IN THE ED. DISCUSSED RESULTS WITH THE PATIENT AND CARDIOLOGY; DR JOHNSON AND DR COON. DR COON RECOMMENED ADMISSION FOR A CARDIAC STRESS TEST. I DISCUSSED THIS WITH THE PATIENT; HE DECLINED ADMISSION. HE AGREESD TO CALL DR COON'S OFFICE AND ARRANGE AN OUT PATIENT FOLLOW UP FOR THE STRESS TEST. HE WILL RETURN TO THE ED IF WORSE. - Diagnoses Provider Diagnoses: Chest pain, Shortness of breath, Hypotension, Dizziness - Provider Notifications Discussed Care Of Patient With: Jaswinder Johnson Time Discussed With Above Provider: 14:56 Instructed by Provider To: Other - Discussed case with Dr. Johnson, if there are any pressing concerns; Dr. Johnson was not concerned. Discharge - Sign-Out/Discharge Documenting (check all that apply): Discharge/Admit/Transfer - Discharge Plan Condition: Stable Disposition: HOME Patient Education Materials: Chest Pain (ED), Hypotension (ED), Dizziness (ED) , Shortness of Breath (ED) Referrals: Luis Coon MD [Medical Doctor] - Escobar Dumont MD [Primary Care Provider] - Additional Instructions: FOLLOW UP WITH YOUR PEDIATRIC SPORTS MEDICINE SPECIALIST, DR COON. CALL HIM TODAY TO ARRANGE FOLLOW UP. RETURN TO THE EMERGENCY DEPARTMENT FOR ANY WORSENING OF YOUR CONDITION; CHEST PAIN, SHORTNESS OF BREATH, YOU FEEL LIKE PASSING OUT OR QUESTIONS OR CONCERNS. 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 Discussed pt care and possibility of admit, and if not, follow up with Dr. Coon. The documentation as recorded by the Charles vazquez Simon accurately reflects the service I personally performed and the decisions made by me, Barak Marcum MD.
== END 2017-09-15 15:43 | disposition home or self-care (01) ==
LOC: ED 11:11
DX: R07.89 Other chest pain (principal); R06.02 Shortness of breath; I95.9 Hypotension, unspecified; R42 Dizziness and giddiness; R53.83 Other fatigue; I25.10 Atherosclerotic heart disease of native coronary artery without angina pectoris; Z88.8 Allergy status to other drugs, medicaments and biological substances; I25.2 Old myocardial infarction; E78.00 Pure hypercholesterolemia, unspecified; Z82.49 Family history of ischemic heart disease and other diseases of the circulatory system; Z80.9 Family history of malignant neoplasm, unspecified
CPT/HCPCS: 36415; 71045; 71275; 80053; 82550; 82553; 83605; 83690; 83735; 83880; 84443; 84484; 85025; 85379; 85610; 85730; 86140; 93005; 96360; 99283; Q9967

== ENCOUNTER 2018-07-14 07:02 | Observation (INO) | payer MEDICARE ==
--- NOTE | 2018-06-30 22:48 | HP ---
CC: Dr. Dumont; Dr. Dani Clark * HISTORY AND PHYSICAL: DATE OF PLANNED ADMISSION AND SURGERY: 07/14/18 HISTORY OF PRESENT ILLNESS: Mr. Calabrese is a 77-year-old white male who is admitted with carcinoma of the prostate, prostate enlargement and obstruction, for transurethral resection of the prostate. Mr. Calabrese was referred to my office by Dr. Dumont in April 2017, because of symptoms of bladder outlet obstruction and markedly elevated PSA of 223. At his initial visit to my office, a rectal examination showed a large indurated and fixed prostate consistent with prostate carcinoma. His postvoid residual was around 300 cc. He was started on alpha niesha; however, he could not tolerate neither tamsulosin nor alfuzosin because of lightheadedness and dizziness and they had to be discontinued. He had a coronary stent placed a month earlier and had been maintained on Brilinta. He was followed by Dr. Sheldon and by Dr. Coon. Both cardiologists felt that he should not stop his Brilinta for fear of occluding his coronary stent and thus could not undergo prostate biopsies for pathological diagnoses. Metastatic disease with CT of the abdomen and pelvis and bone scan were negative for metastatic disease. The patient was seen in oncology consultation by Dr. Clark. He and I agreed to treat him as having prostate carcinoma, with total hormone ablation therapy in the form of bicalutamide 50 mg daily and Lupron shots based on the clinical diagnoses of prostate carcinoma, deferring obtaining pathological diagnosis to when he can stop the anticoagulation. The patient had a dramatic response to the hormone ablation therapy and his PSA in March 2018 was down to 1.3. He, however, continued to be significantly bothered by his voiding, having urgency, slow stream, hesitancy, frequency and nocturia about every hour with continued elevated postvoid residual in the vicinity of 300 cc. Cystoscopy showed an enlarged obstructing prostate and heavy bladder trabeculations. Urodynamic studies showed good detrusor voiding pressure, making him a very candidate for TURP. After completing 1 year of anticoagulation following the coronary stent placement, Dr Coon stopped the Brilinta. After work-up with Nuclear Stress test and cardiac echo, (reports included) Dr. Coon cleared him for TURP. The patient now is admitted for transurethral resection of the prostate. PAST MEDICAL HISTORY AND SYSTEM REVIEW: The patient is otherwise healthy. He has been travelling extensively, having no chest pain or shortness of breath. He has been less energetic as a side effect of the hormone ablation therapy. MEDICATIONS: His medications include: 1. One baby aspirin per day. 2. Bicalutamide 50 mg daily. 3. Nitroglycerin sublingual as needed. 4. Livalo for hyperlipidemia, at 20 mg daily. 5. Lupron 30 IM every 4 months. ALLERGIES: He denies any allergies to medications. However, he could not tolerate STATINS. ALFUZOSIN and TAMSULOSIN both made him dizzy and gave him a rash and itching. FAMILY HISTORY: Negative for prostate carcinoma. SOCIAL HISTORY: The patient is a nonsmoker. PHYSICAL EXAMINATION GENERAL: He is a pleasant and healthy-looking white male, who looks good for his age. VITAL SIGNS: Blood pressure 130/74, pulse of 78. LUNGS: Clear. HEART: Regular and rhythmic. No murmurs. ABDOMEN: Soft, no masses, no tenderness. No CVA tenderness. EXTERNAL GENITALIA: Normal. EXTREMITIES: Show no edema. RECTAL: Show a moderately enlarged, indurated, and irregular prostate. IMPRESSION: 1. Prostate carcinoma with good PSA response to hormone ablation therapy with Lupron and bicalutamide. Negative work up for metastatic disease. 2. Prostate enlargement with bladder outlet obstruction and significant elevation of the postvoid residual at about 300 cc. Good detrusor function by urodynamic studies making him a good candidate for transurethral resection of the prostate. 3. Coronary artery disease, status post placement of coronary stent, off anticoagulation, stable cardiac hurley.. PLAN: Cystoscopy and transurethral resection of the prostate. I discussed the operation in detail with the patient. Some of the potential complications including gross hematuria, infection, small risk of urinary incontinence, and urethral stricture were discussed. Considering the patient has no evidence of metastatic disease by bone scan and CT scan, the plan is to give him a course of radiation therapy to the prostate in about 3 months after the TURP. I discussed all the above plans in detail and all his questions were answered. [id number] #: [id number] MTDD
[~2018-07-14 07:02] MED LIST: Buffered Lidocaine 1% SYRIN* 1 ML/SYRINGE INTRADERM ONE; Dexamethasone TAB* 4 MG PO ONE; DiMENhydriNATE IV* 50 MG/ML VIAL IV PUSH PRN; Famotidine IV* 10 MG/ML 2 ML (20 mg) IV ONE; Lactated Ringers 1000 ML Bag* 1,000 ML IV SCH; Naloxone* 0.4 MG/ML 1 ML VIAL IV PRN; Ondansetron TAB* 4 MG PO ONE; PROCHLORPERAZINE INJ 5 MG/ML 2 ML VIAL IV PRN
[2018-07-14] MEDS ORDERED: Ondansetron ODT TAB* 4 MG ONE (07:43)
[2018-07-14] MEDS ORDERED: Dexamethasone TAB* 4 MG ONE (07:43)
[2018-07-14] MEDS ORDERED: cefTRIAXone(*) 2 GM ADDV.VIAL IVPB ONE (07:44)
[2018-07-14] MEDS ORDERED: Famotidine IV* 10 MG/ML 2 ML (20 mg) ONE (07:44)
[2018-07-14] MEDS ORDERED: Buffered Lidocaine 1% SYRIN* 1 ML/SYRINGE INTRADERM ONE (07:44)
[2018-07-14] MEDS ORDERED: fentaNYL* 50 MCG/ML 2 ML VIAL (100 MCG VIAL) ONE ×2 (08:02→11:00)
[2018-07-14] MEDS ORDERED: KETAMINE HCL* 50 MG/ML 10 ML VIAL ONE (08:02)
[2018-07-14] MEDS ORDERED: Midazolam* 1 MG/ML 5 ML VIAL (5 MG) ONE (08:03)
[2018-07-14] MEDS: fentaNYL* 50 MCG/ML 2 ML VIAL (100 MCG VIAL) IV PRN ×2 (11:00→11:13)
[2018-07-14] MEDS ORDERED: Morphine 4 MG/ML VIAL (1 ml) 4 MG/ML VIAL ONE (11:13)
[2018-07-14] MEDS: Morphine 4 MG/ML VIAL (1 ml) 4 MG/ML VIAL IV PRN ×2 (11:14→11:30)
[2018-07-14] MEDS ORDERED: Oxybutynin TAB* 5 MG ONE (12:07)
[2018-07-14] MEDS ORDERED: Lidocaine 2% JELLY* 6 ML JELLY TOPICAL ONE (12:08)
[2018-07-14] MEDS ORDERED: oxyCODONE/Acetamin 5/325 MG* TAB ONE ×2 (13:01→13:55)
--- NOTE | 2018-07-14 13:28 | OP ---
CC: Dr. Dumont; Dr. Dani Clark * DATE OF OPERATION: 07/14/18 - ROOM #352 DATE OF : 44 SURGEON: Partha Griffin MD ANESTHESIOLOGIST: Dr. Bradley Gibson ANESTHESIA: General. PRE-OP DIAGNOSES: 1. Partial urinary retention. 2. Prostate enlargement and obstruction. 3. Carcinoma of the prostate. POST-OP DIAGNOSES: 1. Partial urinary retention. 2. Prostate enlargement and obstruction. 3. Clinical carcinoma of the prostate, pending pathology. OPERATIVE PROCEDURE: 1. Cystoscopy. 2. Transurethral resection of the prostate. INDICATION FOR PROCEDURE: Mr. Calabrese is a 77-year-old white male, who presented 14 months ago with partial urinary retention with post void residual urine of 300 to 400 cc and a markedly elevated PSA at 220 and an indurated prostate on rectal exam. The patient had placement of a coronary stent 1 month earlier, was on anticoagulation that could not be safely stopped, and a prostate biopsy could not be performed. Metastatic workup was negative. He was placed on total androgen deprivation therapy. He could not tolerate alpha- blockers because of dizziness. He continued to have significant obstructive voiding symptoms with nocturia, day frequency and incomplete bladder emptying. Cystoscopy showed an obstructing prostate and bladder trabeculations. Urodynamic studies showed high voiding detrusor pressure indicating good detrusor function. The anticoagulation was discontinued about 2 months ago. With the persistent obstructive voiding symptoms and an elevated postvoid residual, the patient is admitted for transurethral resection of the prostate. PATHOLOGY AT CYSTOSCOPY: The penile and bulbar urethrae looked normal. The prostatic urethra measured about 3 cm in length and there was obstruction mostly bilateral lobes of the prostate and moderate enlargement of the median lobe. Examination of the bladder showed normal ureteral orifices. There were moderate diffuse trabeculations. No calculi or diverticula and no suspicious bladder lesions were seen. The prostate adenoma was only slightly vascular. DESCRIPTION OF PROCEDURE: After successful general anesthesia, the patient was placed in the lithotomy position and was prepped and draped for cystoscopy. Cystoscopy was performed. The findings in the prostatic urethra and in the bladder were noted. The resectoscope was then introduced inside the bladder. Mannitol, sorbitol solution was used for irrigation and the inflow and outflow were adjusted to avoid overdistention of the bladder. The median lobe and the protruding portion of the lateral lobes of the prostate into the bladder neck were resected circumferentially. The resectoscope was then positioned in the mid prostatic urethra and the prostate tissue was resected circumferentially. The resectoscope was then positioned at the level of the veru. The left lobe was then resected starting at 5 o'clock and proceeding anteriorly. The right lobe was resected next. The anterior tissue and the apical tissue were resected last. The limits of the resection were the bladder neck proximally, the veru distally and the capsule circumferentially. The bleeders were electrocoagulated and controlled. At the completion of the resection, the prostatic urethra was wide open. The external sphincter, the veru, the capsule, the bladder, the ureteral orifices were all intact. Good hemostasis was achieved. All the prostate chips were then evacuated and sent for pathology. After a final inspection which showed no obstructing tissue and good hemostasis , the resectoscope was removed and a size 22-Indonesian Mackay catheter was passed inside the bladder and the balloon inflated with 30 cc of water. The catheter was placed under gentle traction and taped to the right thigh of the patient. The patient tolerated the procedure well and left the operating room in good condition. The blood loss was estimated at about 50 cc. The specimen was prostate chips. [id number]/[facility] #: [id number] [facility] HOSPITALMark
[2018-07-14] MEDS ORDERED: Oxybutynin TAB* 5 MG PO PRN (13:59)
[2018-07-14] MEDS ORDERED: oxyCODONE/Acetamin 5/325 MG* TAB PO PRN (14:00)
[2018-07-14] MEDS ORDERED: Lidocaine 2% JELLY* 6 ML JELLY TOPICAL PRN (14:01)
[2018-07-14] MEDS ORDERED: Nitroglycerin TAB 0.4 MG* 0.4 MG TAB SL PRN (19:08)
[2018-07-14] MEDS: LR @ 40 MLS/HR IV SCH (21:40)
[2018-07-15] MEDS: LR @ 40 MLS/HR IV SCH (04:29)
[2018-07-15] MEDS ORDERED: cefTRIAXone(*) 1 GM in NS 0.9% 50 ML* 50 ML IVPB ONE (07:00)
[2018-07-15] MEDS ORDERED: VITAMIN E 100 UNIT PO SCH (09:00)
[2018-07-15] MEDS ORDERED: BICALUTAMIDE 50 MG PO SCH (09:00)
[2018-07-15] MEDS ORDERED: NF:Pitavastatin (NF) 2 MG TAB PO SCH (09:00)
[2018-07-15] MEDS ORDERED: Nitroglycerin 0.1 mg/Hr PATCH* (2.5 MG) TRANSDERM SCH (09:00)
[2018-07-15 09:44] VITALS: BP 103/57
--- NOTE | 2018-07-15 11:05 | DS ---
CC: Dr. Dumont; Dr. Dani Clark* DISCHARGE SUMMARY: DATE OF ADMISSION: 07/14/18 DATE OF DISCHARGE: 07/15/18 FINAL DIAGNOSES: 1. Carcinoma of the prostate (Clinical Diagnosis) 2. Urinary retention. 3. Coronary artery disease. OPERATION: Transurethral resection of the prostate on 07/14/18. HISTORY: Mr. Calabrese is a 77-year-old white male who was diagnosed 14 months ago with clinical carcinoma of the prostate with a markedly elevated PSA of 220. At that time, he could not undergo prostate biopsies because he has been maintained on anticoagulation for recent placement of a coronary stent, and the ambulatory care nurse did not want him to go off the anticoagulation at all. Metastatic workup including a bone scan and a CT of the abdomen and pelvis was negative. At that time, he was having significant degree of voiding symptoms with day and night frequency almost every hour and a large postvoid residual of about 400 cc. The patient preferred not to have a Mackay catheter. He was placed on alpha blockers; however, he could not tolerate them because of dizziness. He was started on hormone ablation therapy in the form of bicalutamide and Lupron shots. His voiding slightly improved and his postvoid residual was down between 200 and 300 cc, but he remained significantly bothered by his voiding. He had a dramatic response to the hormone ablation therapy with the PSA down to 1.3 in March 2018. The anticoagulation for the coronary stents was discontinued about 2 months ago and after he was evaluated by Dr. Coon, his ambulatory care nurse, he was cleared to undergo TURP. The patient was worked up with a cystoscopy, which showed an obstructing prostate and urodynamic studies which showed high voiding detrusor pressure. The patient is admitted for transurethral resection of the prostate. PAST MEDICAL HISTORY: Relevant for coronary artery disease, required stent placement. He has hyperlipidemia, on treatment. ALLERGIES: The patient denies any allergies to medications; however, he could not tolerate statins, and both alpha-1 blockers caused him dizziness. SOCIAL HISTORY: He is a nonsmoker. FAMILY HISTORY: Negative for prostate carcinoma. PHYSICAL EXAMINATION: Preoperative physical examination showed a healthy male, moderately overweight. Rectal exam showed an indurated and irregular prostate. LABORATORY DATA: Preoperative lab work was within normal. COURSE IN HOSPITAL: The patient was admitted the morning of his surgery. He underwent an uncomplicated transurethral resection of the prostate under general anesthesia. He did very well postoperatively. He was kept overnight for observation, and by the morning, his urine has remained crystal clear with normal vital signs and good urine output. The patient is being discharged home in good condition on Mackay catheter drainage. He was given instructions for catheter care. He is to continue all his medications with the exception of the aspirin, which he was advised to resume in about 4 days. I will see him in my office in 5 days for Mackay catheter removal. The plan is to continue on the hormone ablation therapy for a total of 2 years. The pathology on the resected prostate tissue was benign. Considering that the patient has been on total androgen ablation therapy for 14 months, and the TURP specimen originates from the transitional zone of the prostate where prostate carcinoma may not occur, prostate carcinoma is still the most likely diagnosis. The plan is to continue on the hormone ablation therapy, to perform transrectal ultrasound guided biopsies of the prostate in 6 to 8 weeks, and then to refer him for Radiation Oncology consultation with the idea of giving him a course of external beam radiation therapy after he is fully healed from the TURP. [id number]/[facility] #: [id number] JESSE
[2018-07-15] MEDS ORDERED: Nitro Patch/OINT Remove PATCH OFF SCH (21:00)
== END 2018-07-15 10:35 | disposition home or self-care (01) ==
LOC: OR 07:02 → SSU 13:40
PROVIDERS: ADMIT Urology; ATTEND Urology
DX: C61 Malignant neoplasm of prostate (principal); R33.8 Other retention of urine; I25.10 Atherosclerotic heart disease of native coronary artery without angina pectoris; E78.5 Hyperlipidemia, unspecified; Z79.01 Long term (current) use of anticoagulants; Z79.82 Long term (current) use of aspirin
CPT/HCPCS: 88305; 96374; 96375; A9270-GY; G0378; J0696; J2250; J2270; J3010; J8540

== ENCOUNTER 2020-02-20 13:00 | Inpatient (IN) ==
[2020-02-20 15:07] LABS: ABS Lymphocytes 0.4 10^3/ul (1.0-4.8); ABS Monocytes 0.4 10^3/ul (0-0.8); ABS Neutrophils 7.7 10^3/ul (1.5-7.7); Eosinophil % 0.1 %; Hematocrit 38 % (42-52); Hemoglobin 13.3 g/dL (14.0-18.0); Lymphocyte % 4.5 %; Mean Corpuscular HGB Conc 35 g/dL (31-36); Mean Corpuscular Hemoglobin 31 pg (27-31); Mean Corpuscular Volume 89 fL (80-94); Mean Platelet Volume 9.3 fL (7.4-10.4); Nucleated Red Blood Cells % 0.1; Platelet Count 194 10^3/uL (150-450); Red Blood Count 4.28 10^6 /uL (4.18-5.48); Red Cell Distribution Width 13 % (10-15); White Blood Count 8.5 10^3/uL (3.5-10.8)
[2020-02-20 15:30] LABS: Influenza A Molecular Negative (Negative); Influenza B Molecular Negative (Negative)
[2020-02-20 15:32] LABS: INR 1.27 (0.82-1.09)
[2020-02-20 15:38] LABS: Troponin I 0.03 ng/mL (<0.03)
[2020-02-20] MEDS ORDERED: Remdesivir 5 MG/ML LIQ IV Vial 200 MG in NS 0.9% 250 ml 210 ML IV ONE (15:39)
[2020-02-20 15:41] LABS: ALT 54 U/L (7-52); AST 45 U/L (13-39); Albumin 3.9 g/dL (3.2-5.2); Albumin/Globulin Ratio 1.1 (1-3); Alkaline Phosphatase 56 U/L (34-104); Anion Gap 7 mmol/L (2-11); BUN/Creatinine Ratio 19.5 (8-20); Blood Urea Nitrogen 16 mg/dL (6-24); C Reactive Protein 162.03 mg/L (<8.01); CO2 Carbon Dioxide 28 mmol/L (22-32); Calcium 9.4 mg/dL (8.6-10.3); Chloride 96 mmol/L (101-111); Creatine Kinase 219 U/L (10-223); EGFR African American 110.2 (>60); EGFR Non-African American 91.1 (>60); Globulin 3.4 g/dL (2-4); Glucose 94 mg/dL (70-100); Magnesium 2.3 mg/dL (1.9-2.7); Potassium 3.9 mmol/L (3.5-5.0); Sodium 131 mmol/L (135-145); Total Protein 7.3 g/dL (6.4-8.9)
[2020-02-20 15:46] LABS: LDH 290 U/L (140-271)
[2020-02-20] MEDS ORDERED: NS 0.9% 1000 ml BAG 1,000 ML IV ONE (15:59)
[2020-02-20 16:36] LABS: Urine Appearance Clear; Urine Bilirubin Negative (Negative); Urine Blood Negative (Negative); Urine Color Yellow; Urine Glucose Negative (Negative); Urine Ketones Negative (Negative); Urine Nitrite Negative (Negative); Urine Protein Negative (Negative); Urine Specific Gravity 1.013 (1.010-1.030); Urine Urobilinogen Negative (Negative)
[2020-02-20] MEDS: Enoxaparin 60 MG/0.6 ML SYR SUBCUT SCH (20:42)
[2020-02-21 06:21] LABS: ABS Lymphocytes 0.4 10^3/ul (1.0-4.8); ABS Monocytes 0.4 10^3/ul (0-0.8); ABS Neutrophils 5.3 10^3/ul (1.5-7.7); Eosinophil % 0.3 %; Hematocrit 34 % (42-52); Hemoglobin 11.8 g/dL (14.0-18.0); Mean Corpuscular HGB Conc 35 g/dL (31-36); Mean Corpuscular Hemoglobin 31 pg (27-31); Mean Corpuscular Volume 88 fL (80-94); Platelet Count 190 10^3/uL (150-450); Red Blood Count 3.85 10^6 /uL (4.18-5.48); Red Cell Distribution Width 13 % (10-15)
[2020-02-21 06:42] LABS: BUN/Creatinine Ratio 17.6 (8-20); Calcium 8.5 mg/dL (8.6-10.3); EGFR African American 124.1 (>60); EGFR Non-African American 102.6 (>60); Potassium 3.8 mmol/L (3.5-5.0)
[2020-02-21] MEDS: Enoxaparin 60 MG/0.6 ML SYR SUBCUT SCH ×2 (11:06→19:46)
[2020-02-21] MEDS: Aspirin EC 81 mg TAB.EC (enteric coated) PO SCH (11:07)
[2020-02-21] MEDS: Remdesivir 5 MG/ML LIQ IV Vial 100 MG in NS 0.9% 250 ml 230 ML IV SCH (17:19)
[2020-02-22 06:26] LABS: ABS Lymphocytes 0.5 10^3/ul (1.0-4.8); ABS Monocytes 0.4 10^3/ul (0-0.8); Hematocrit 34 % (42-52); Hemoglobin 11.8 g/dL (14.0-18.0); Mean Corpuscular HGB Conc 34 g/dL (31-36); Mean Corpuscular Hemoglobin 31 pg (27-31); Mean Corpuscular Volume 89 fL (80-94); Mean Platelet Volume 8.8 fL (7.4-10.4); Platelet Count 227 10^3/uL (150-450); Red Blood Count 3.88 10^6 /uL (4.18-5.48); Red Cell Distribution Width 13 % (10-15); White Blood Count 7.9 10^3/uL (3.5-10.8)
[2020-02-22 06:41] LABS: BUN/Creatinine Ratio 28.2 (8-20); Calcium 9.1 mg/dL (8.6-10.3); EGFR African American 130.2 (>60); EGFR Non-African American 107.6 (>60); Potassium 4.4 mmol/L (3.5-5.0)
[2020-02-22] MEDS: Aspirin EC 81 mg TAB.EC (enteric coated) PO SCH (08:25)
[2020-02-22] MEDS: Enoxaparin 60 MG/0.6 ML SYR SUBCUT SCH ×2 (08:26→20:15)
[2020-02-22] MEDS ORDERED: Pneumococcal Vac 23-Polyvalent IM ONE (09:00)
[2020-02-22] MEDS ORDERED: Influenza VAC *QUAD* 2020-21* 0.5 ML SYRINGE IM ONE (09:00)
[2020-02-22] MEDS: Remdesivir 5 MG/ML LIQ IV Vial 100 MG in NS 0.9% 250 ml 230 ML IV SCH (17:34)
[2020-02-23] MEDS: Enoxaparin 60 MG/0.6 ML SYR SUBCUT SCH (09:29)
[2020-02-23] MEDS: Aspirin EC 81 mg TAB.EC (enteric coated) PO SCH (09:31)
[2020-02-23 12:48] VITALS: BP 127/70
== END 2020-02-23 15:50 | disposition home or self-care (01) | DRG 871 ==
LOC: MED 13:00 → ED 13:00 → MED 17:53
PROVIDERS: ADMIT Internal Medicine; ATTEND Internal Medicine